=== PATIENT | female | born 1945 | race Caucasian/White ===

== ENCOUNTER 2017-04-19 18:35 | Emergency (ER) | payer OTHER ==
[~2017-04-19] VITALS: Ht 167.6 cm; Wt 105.7 kg
[~2017-04-19 18:35] MED LIST: DICLOFENAC POTA50 MG PO
[2017-04-19] MEDS ORDERED: DUI500 PO (19:31)
== END 2017-04-19 19:40 | disposition home or self-care (01) ==
LOC: ER 18:35
DX: S60.312A Abrasion of left thumb, initial encounter (principal); W26.8XXA Contact with other sharp object(s), not elsewhere classified, initial encounter; Y93.89 Activity, other specified; Y92.018 Other place in single-family (private) house as the place of occurrence of the external cause; Y99.8 Other external cause status